=== PATIENT | male | born 1990 ===

== ENCOUNTER 2017-02-03 11:01 | Emergency (ER) | payer OTHER ==
[2017-02-03 11:08] VITALS: BMI 25.0
[2017-02-03 11:10] VITALS: RESP 18
[2017-02-03 11:51] LABS: URINE BILIRUBIN NEGATIVE (NEGATIVE); URINE BLOOD NEGATIVE (NEGATIVE); URINE GLUCOSE (UA) NEGATIVE (NEGATIVE); URINE KETONE NEGATIVE (NEGATIVE); URINE LEUKOCYTE ESTERASE TRACE Leu/uL (NEGATIVE); URINE PROTEIN NEGATIVE mg/dL (<30 mg/dL); URINE UROBILINOGEN 0.2 E.U./dL (<1 E.U./dL)
[2017-02-03 11:54] LABS: URINE APPEARANCE CLEAR (CLEAR); URINE COLOR YELLOW (YELLOW)
[2017-02-03 12:11] LABS: URINE BACTERIA NEG (NEG); URINE EPITHELIAL CELLS 0 - 2 /hpf (0-5); URINE RBC NEGATIVE /hpf (0-2); URINE WBC 0 - 2 /hpf (0-6)
--- NOTE | 2017-02-03 12:14 | ED PDOC ---
Arrival/HPI - General Chief Complaint: Back Pain Time Seen by Provider: 02/03/17 11:03 Historian: Patient - History of Present Illness Narrative History of Present Illness (Text): 02/03/17 12:12 Patient is a 26 yo male, denies past medical history, presents to ED with left lower back pain radiating down his leg, sharp and stabbing. 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 He was "lifting a 60 pound dog" yesterday afternoon and suddenly felt low back pain, initially mild, while lifting. Pain persisted and worsened throughout the day and overnight. Constant, worse with movements or bending. Denies urinary symptoms. Denies abdominal pain. Denies numbness or weakness. Denies incontinence of urine or stool. Past Medical History - Infectious Disease Hx of Infectious Diseases: None - Psychiatric Hx Substance Use: Yes - Anesthesia Hx Anesthesia: No Family/Social History Family/Social History: Unknown Family HX Smoking Status: Light Smoker < 10 Cigarettes Daily Hx Alcohol Use: Yes Frequency of alcohol use: Socially Hx Substance Use: Yes Substance used: marijuana Allergies/Home Meds Allergies/Adverse Reactions: Allergies No Known Allergies Allergy (Verified 02/03/17 11:07) Review of Systems - Review of Systems Constitutional: absent: Fevers Respiratory: absent: SOB Cardiovascular: absent: Chest Pain Gastrointestinal: absent: Abdominal Pain, Nausea, Food Intolerance Genitourinary Male: absent: Dysuria, Frequency, Hematuria Musculoskeletal: Back Pain. absent: Neck Pain Skin: absent: Rash Neurological: absent: Headache, Dizziness, Focal Weakness Physical Exam Vital Signs Reviewed: Yes Vital Signs Temp Pulse Resp BP Pulse Ox 02/03/17 12:44 98 F 75 18 124/73 98 02/03/17 11:10 98.3 F 95 H 18 140/82 97 Temperature: Afebrile Appearance: Positive for: Uncomfortable Pain Distress: Moderate Mental Status: Positive for: Alert and Oriented X 3 - Systems Exam Head: Present: Atraumatic Pupils: Present: PERRL Mouth: Present: Moist Mucous Membranes Pharnyx: No: ERYTHEMA Neck: Present: Normal Range of Motion. No: Meningeal Signs Respiratory/Chest: Present: Clear to Auscultation. No: Respiratory Distress Cardiovascular: Present: Regular Rate and Rhythm Abdomen: Present: Normal Bowel Sounds. No: Tenderness, Distention, Peritoneal Signs, Hernias Back: Present: Normal Inspection, Midline Tenderness, Paraspinal Tenderness, Pain with Leg Raise. No: CVA Tenderness Upper Extremity: Present: Normal ROM, NORMAL PULSES, Neurovascularly Intact Lower Extremity: Present: NORMAL PULSES, Neurovascularly Intact. No: CALF TENDERNESS Neurological: Present: Speech Normal, Motor Func Grossly Intact, Normal Sensory Function, Norm Deep Tendon Reflexes, Other (no saddle anesthesia) Skin: Present: Warm Psychiatric: Present: Alert, Normal Insight, Normal Concentration Medical Decision Making ED Course and Treatment: 02/03/17 12:16 Patient's pain is palpable, worse when bending forward or movements. NO neuro deficits noted. No urinary symptoms reported. No abdominal pain. No rash. Pain is not colicky in nature. Patient has no known prior history of back disease. Patient took Tramadol prior to arrival with no relief of pain. No allergies reported. Toradol and flexeril given. Decadron ordered, risks/side effects reviewed with patient. Xrays unremarkable for acute fracture. Plan to discharge with antiinflammatories, advised no heavy lifting or strenuous activity. 02/03/17 14:05 At this time, NO neuro deficits or incontinence noted. No saddle anesthesia or muscle weakness. - Lab Interpretations Lab Results: Lab Results 02/03/17 10:30: Urine Color Yellow, Urine Appearance Clear, Urine pH 6.0, Ur Specific [place] 1.010, Urine Protein Negative, Urine Glucose (UA) Negative, Urine Ketones Negative, Urine Blood Negative, Urine Nitrate Negative, Urine Bilirubin Negative, Urine Urobilinogen 0.2, Ur Leukocyte Esterase Trace H, Urine RBC Negative, Urine WBC 0 - 2, Ur Epithelial Cells 0 - 2, Urine Bacteria Neg - RAD Interpretation Radiology Orders: 02/03/17 11:22 LS SPINE AP/LAT [RAD] Stat - Medication Orders Current Medication Orders: Discontinued Medications Cyclobenzaprine HCl (Flexeril) 10 mg PO STAT STA Stop: 02/03/17 11:23 Last Admin: 02/03/17 11:30 Dose: 10 mg Dexamethasone (Decadron Inj) 4 mg IM STAT STA Stop: 02/03/17 12:36 Last Admin: 02/03/17 12:51 Dose: 4 mg Ketorolac Tromethamine (Toradol) 60 mg IM STAT STA Stop: 02/03/17 11:21 Last Admin: 02/03/17 11:30 Dose: 60 mg Disposition/Present on Arrival - Present on Arrival Any Indicators Present on Arrival: No History of DVT/PE: No History of Uncontrolled Diabetes: No Urinary Catheter: No History of Decub. Ulcer: No History Surgical Site Infection Following: None - Disposition Have Diagnosis and Disposition been Completed?: Yes Diagnosis: Lumbar strain, Back pain Disposition: HOME/ ROUTINE Disposition Time: 12:18 Patient Plan: Discharge Condition: GOOD Discharge Instructions (ExitCare): Acute Low Back Pain (ED), Lumbar Radiculopathy (ED), Back Exercises (ED) Additional Instructions: Rest. No heavy lifting or strenuous activity. For any fever, any urinary symptoms, any numbness or weakness, any rash, any abdominal pain, any nausea or vomiting, any persistent or worsening of symptoms , get rechecked. Follow-up with your physician in 1-2 days. Prescriptions: Cyclobenzaprine [Cyclobenzaprine HCl] 10 mg PO TID PRN #12 tab PRN Reason: Muscle Spasm Naproxen [Naprosyn Tab] 250 mg PO BID PRN #10 tab PRN Reason: Pain, Mild (1-3) Referrals: [facility] [place] [Outside] - Follow up with primary [facility] [Outside] - Follow up with primary Forms: WORK NOTE
--- NOTE | 2017-02-03 12:18 | RAD ---
PROCEDURE: Radiographs of the Lumbar Spine. HISTORY: low back pain COMPARISON: No prior. FINDINGS: BONES: Normal alignment. No listhesis. No fracture. DISC SPACES: Unremarkable. OTHER FINDINGS: None. IMPRESSION: Unremarkable radiographs of the lumbar spine.
[2017-02-03] MEDS ORDERED: Dexamethasone 4 mg/1 ml IM STA (12:35)
[2017-02-03 12:44] VITALS: BP 124/73; PULSE 75; TEMP 98; O2SAT 98
== END 2017-02-03 12:51 | disposition home or self-care (01) ==
LOC: ED 11:01
DX: M54.5 Low back pain (principal); S39.012D Strain of muscle, fascia and tendon of lower back, subsequent encounter; X50.9XXD Other and unspecified overexertion or strenuous movements or postures, subsequent encounter
CPT/HCPCS: 72100; 81001; 96372; 99282; J1100; J1885